=== PATIENT | female | born 1940 | race Caucasian/White ===

== ENCOUNTER 2019-01-02 07:58 | Emergency (ER) | payer OTHER ==
[~2019-01-02] VITALS: Ht 160 cm; Wt 77.1 kg
[2019-01-02] MEDS ORDERED: SYNTHROID100 MCG (08:18)
[2019-01-02] MEDS ORDERED: TOPROL XL25 M1 (08:19)
== END 2019-01-02 10:24 | disposition home or self-care (01) ==
LOC: ER 07:58
DX: B34.9 Viral infection, unspecified (principal); J11.1 Influenza due to unidentified influenza virus with other respiratory manifestations

== ENCOUNTER 2022-04-21 09:35 | Emergency (ER) | payer OTHER ==
[~2022-04-21] VITALS: Ht 157.5 cm; Wt 124.3 kg
[~2022-04-21 09:35] MED LIST: SYNTHROID100 MCG; TOPROL XL25 M1
[2022-04-21] MEDS ORDERED: COZAAR100 MG PO (09:55)
== END 2022-04-21 13:04 | disposition home or self-care (01) ==
LOC: ER 09:35
DX: M72.2 Plantar fascial fibromatosis (principal); M79.672 Pain in left foot; M79.671 Pain in right foot; I10 Essential (primary) hypertension